=== PATIENT | male | born 1995 | race Caucasian/White ===

== ENCOUNTER 2018-03-14 20:52 | Emergency (ER) | payer OTHER ==
[2018-03-14] MEDS ORDERED: NS 0.9% 1000 ML* 1,000 ML IV ONE (21:46)
[2018-03-14 22:01] LABS: ABS Basophils 0.1 10^3/ul (0-0.2); ABS Eosinophils 0.1 10^3/ul (0-0.6); ABS Lymphocytes 2.9 10^3/ul (1.0-4.8); ABS Monocytes 0.5 10^3/ul (0-0.8); ABS Neutrophils 4.5 10^3/ul (1.5-7.7); ABS Nucleated RBC 0 10^3/ul; Eosinophil % 1.6 % (0-6); Hematocrit 45 % (42-52); Hemoglobin 15.6 g/dl (14.0-18.0); Lymphocyte % 35.9 % (25-47); Mean Corpuscular HGB Conc 35 g/dl (31-36); Mean Corpuscular Hemoglobin 31 pg (27-31); Mean Corpuscular Volume 90 fL (80-94); Mean Platelet Volume 7.9 um3 (7.4-10.4); Nucleated Red Blood Cells % 0.1; Platelet Count 263 10^3/ul (150-450); Red Blood Count 4.96 10^6/ul (4.0-5.4); Red Cell Distribution Width 13 % (10.5-15); White Blood Count 8.1 10^3/ul (3.5-10.8)
[2018-03-14 22:05] LABS: INR 1.06 (0.77-1.02)
[2018-03-14 22:18] LABS: EGFR Non-African American 115.4 (>60)
[2018-03-14] MEDS ORDERED: Iodixanol* (CONTRAST) 320 MG/ML 100 ML SDV IV ONE (22:41)
--- NOTE | 2018-03-14 23:16 | ED ---
Thomas Ngo Julia, scribed for Fernanda Fowler MD on 03/14/18 at 2124 . Abdominal Pain/Male - HPI Summary HPI Summary: This patient is a 22 year old M presenting to [facility] accompanied by his mother with a chief complaint of intermittent RLQ abdominal pain multiple times in the past two days (more than 10 times) that lasts roughly 2 hours maximum. Patient reports rectal pain with BM, one bout of vomiting (not bloody or dark), decreased PO intake, fever of 101 at home tonight (did not take fever reducing med) and bloody runny stool with bright red blood. Patient denies hematuria and testicular pain. The patient rates the pain 5/10 in severity. Medications include Metformin 500mg daily starting 03/12/18, as prescribed by Dr. Rollins in [place]. A1C of 9.8 and (nonfasting) blood glucose of 350 on 03/08/18. Pt last ate at 14:00 today. Pt takes Ibuprofen as needed. Took 800mg Ibuprofen on for knee pain, but does not take more than one 800mg Ibuprofen in a week. - History of Current Complaint Chief Complaint: EDAbdPain Stated Complaint: ABD PAIN, BLOOD IN STOOL Time Seen by Provider: 03/14/18 20:57 Hx Obtained From: Patient, Family/Child Therapist - mother Onset/Duration: Gradual Onset, Lasting Days, Still Present Timing: Intermittent, Lasting Hours Severity Initially: Mild Severity Currently: Moderate Pain Intensity: 5 Pain Scale Used: 0-10 Numeric Location: Discrete At: RLQ Radiates: No Character: Sharp Aggravating Factor(s): Food Alleviating Factor(s): Nothing Associated Signs And Symptoms: Positive: Fever - 101 at home tonight, not in ED , Blood in Stool, Decreased Appetite, Vomiting, Diarrhea - Risk Factors Testicular Torsion: Negative Cardiac Risk Factors: Diabetes - Allergies/Home Medications Allergies/Adverse Reactions: Allergies Allergy/AdvReac Type Severity Reaction Status Date / Time No Known Allergies Allergy Verified 03/14/18 20:57 Home Medications: Home Medications Metformin ER (NF) 500 mg PO DAILY 03/14/18 [History Confirmed 03/14/18] PMH/Surg Hx/FS Hx/Imm Hx Previously Healthy: No Endocrine/Hematology History: Reports: Hx Diabetes - type II, new dx, started metformin 03/12/18 Denies: Hx Thyroid Disease Cardiovascular History: Denies: Hx Hypertension Respiratory History: Denies: Hx Asthma, Hx Lung Cancer GI History: Denies: Hx Ulcer Psychiatric History: Denies: Hx Anxiety - Surgical History Surgery Procedure, Year, and Place: none Infectious Disease History: No Infectious Disease History: Denies: Traveled Outside the [place] in Last 30 Days - Family History Known Family History: Positive: Diabetes - mother - Social History Occupation: Unemployed Lives: With Family Alcohol Use: Rare Substance Use Type: Reports: None Smoking Status (MU): Never Smoked Tobacco Review of Systems Positive: Fever Cardiovascular: Negative Respiratory: Negative Positive: Abdominal Pain, Vomiting, Diarrhea, Other - bloody stool (bright red) Positive: no symptoms reported Skin: Negative Neurological: Negative Psychological: Normal All Other Systems Reviewed And Are Negative: Yes Physical Exam - Summary Physical Exam Summary: Appearance: well appearing, moderate pain distress, obese Skin: Warm, color reflects adequate perfusion, striae on abdomen Head: Normal Head/Face inspection, Atraumatic Eyes: Conjunctiva clear ENT: Normal inspection Neck: Supple, no nodes, no JVD. Respiratory: Lungs clear, Normal breath sounds, no respiratory distress Cardio: RRR, No murmur, pulses normal, brisk capillary refill Abdomen: soft, RLQ tenderness, positive guarding no rebound, no masses, neg psoas and obturator signs. No CVAT. 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 Bright red blood on buttock cheeks, small non thrombosed hemorrhoid externally, soft brown stool in vault, sent for testing, no fissure or fistula : uncircumcised penis, testicle descended bilaterally, no masses, no inguinal or femoral hernias by palpation. Musculoskeletal: Strength Intact/ ROM intact. No calf tenderness. No edema. Psychological: Normal Neuro: Alert, muscle tone normal, no focal deficit Triage Information Reviewed: Yes Vital Signs On Initial Exam: Initial Vitals Temp Pulse Resp BP Pulse Ox 99.1 F 87 16 133/95 97 03/14/18 20:54 03/14/18 20:54 03/14/18 20:54 03/14/18 20:54 03/14/18 20:54 Vital Signs Reviewed: Yes Diagnostics - Vital Signs Vital Signs Temp Pulse Resp BP Pulse Ox 03/14/18 20:54 99.1 F 87 16 133/95 97 - Laboratory Lab Results: Lab Results 03/14/18 03/14/18 03/14/18 Range/Units 21:50 21:51 21:51 WBC 8.1 (3.5-10.8) 10^3/ul RBC 4.96 (4.0-5.4) 10^6/ul Hgb 15.6 (14.0-18.0) g/dl Hct 45 (42-52) % MCV 90 (80-94) fL MCH 31 (27-31) pg MCHC 35 (31-36) g/dl RDW 13 (10.5-15) % Plt Count 263 (150-450) 10^3/ul MPV 7.9 (7.4-10.4) um3 Neut % (Auto) 55.6 (38-83) % Lymph % (Auto) 35.9 (25-47) % [place] % (Auto) 6.3 (0-7) % Eos % (Auto) 1.6 (0-6) % Baso % (Auto) 0.6 (0-2) % Absolute Neuts (auto) 4.5 (1.5-7.7) 10^3/ul Absolute Lymphs (auto) 2.9 (1.0-4.8) 10^3/ul Absolute Monos (auto) 0.5 (0-0.8) 10^3/ul Absolute Eos (auto) 0.1 (0-0.6) 10^3/ul Absolute Basos (auto) 0.1 (0-0.2) 10^3/ul Absolute Nucleated RBC 0 10^3/ul Nucleated RBC % 0.1 INR (Anticoag Therapy) (0.77-1.02) Sodium 137 L (139-145) mmol/L Potassium 3.7 (3.5-5.0) mmol/L Chloride 103 (101-111) mmol/L Carbon Dioxide 22 (22-32) mmol/L Anion Gap 12 H (2-11) mmol/L BUN 10 (6-24) mg/dL Creatinine 0.82 (0.67-1.17) mg/dL Est GFR ( Amer) 148.4 (>60) Est GFR (Non-Af Amer) 115.4 (>60) BUN/Creatinine Ratio 12.2 (8-20) Glucose 157 H (70-100) mg/dL Lactic Acid 0.8 (0.5-2.0) mmol/L Calcium 10.3 (8.6-10.3) mg/dL Magnesium 1.9 (1.9-2.7) mg/dL Total Bilirubin 0.60 (0.2-1.0) mg/dL AST 91 H (13-39) U/L ALT 120 H (7-52) U/L Alkaline Phosphatase 86 (34-104) U/L Total Creatine Kinase 85 (10-223) U/L C-Reactive Protein 6.24 H (< 5.00) mg/L Total Protein 7.8 (6.4-8.9) g/dL Albumin 4.7 (3.2-5.2) g/dL Globulin 3.1 (2-4) g/dL Albumin/Globulin Ratio 1.5 (1-3) Amylase 25 L (29-103) U/L Lipase 39 (11.0-82.0) U/L / Range/Units 21:51 WBC (3.5-10.8) 10^3/ul RBC (4.0-5.4) 10^6/ul Hgb (14.0-18.0) g/dl Hct (42-52) % MCV (80-94) fL MCH (27-31) pg MCHC (31-36) g/dl RDW (10.5-15) % Plt Count (150-450) 10^3/ul MPV (7.4-10.4) um3 Neut % (Auto) (38-83) % Lymph % (Auto) (25-47) % [place] % (Auto) (0-7) % Eos % (Auto) (0-6) % Baso % (Auto) (0-2) % Absolute Neuts (auto) (1.5-7.7) 10^3/ul Absolute Lymphs (auto) (1.0-4.8) 10^3/ul Absolute Monos (auto) (0-0.8) 10^3/ul Absolute Eos (auto) (0-0.6) 10^3/ul Absolute Basos (auto) (0-0.2) 10^3/ul Absolute Nucleated RBC 10^3/ul Nucleated RBC % INR (Anticoag Therapy) 1.06 H (0.77-1.02) Sodium (139-145) mmol/L Potassium (3.5-5.0) mmol/L Chloride (101-111) mmol/L Carbon Dioxide (22-32) mmol/L Anion Gap (2-11) mmol/L BUN (6-24) mg/dL Creatinine (0.67-1.17) mg/dL Est GFR ( Amer) (>60) Est GFR (Non-Af Amer) (>60) BUN/Creatinine Ratio (8-20) Glucose (70-100) mg/dL Lactic Acid (0.5-2.0) mmol/L Calcium (8.6-10.3) mg/dL Magnesium (1.9-2.7) mg/dL Total Bilirubin (0.2-1.0) mg/dL AST (13-39) U/L ALT (7-52) U/L Alkaline Phosphatase (34-104) U/L Total Creatine Kinase (10-223) U/L C-Reactive Protein (< 5.00) mg/L Total Protein (6.4-8.9) g/dL Albumin (3.2-5.2) g/dL Globulin (2-4) g/dL Albumin/Globulin Ratio (1-3) Amylase (29-103) U/L Lipase (11.0-82.0) U/L Result Diagrams: 03/14/18 21:50 03/14/18 21:51 Lab Statement: Any lab studies that have been ordered have been reviewed, and results considered in the medical decision making process. Abdominal Pain Fem Course/Dx - Course Course Of Treatment: 22 year old M presenting to [facility] accompanied by his mother with a chief complaint of intermittent RLQ abd pain,rectal pain with BM, one bout of vomiting, decreased PO intake, fever of 101 tonight, and bloody runny stool with bright red blood. Medications include Metformin 500mg daily, just started 03/12/18, after new dx of DMII by Dr. Rollins with HbA1C of 9.8 and blood glucose of 350 on 03/08/18. Rectal exam reveals Bright red blood on buttock cheeks, small non thrombosed hemorrhoid externally. 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 Labs, CT A/P, and stool testing is ordered. Pt declines pain medication at this time. Patient is signed out to Dr. Ramírez at shift change awaiting labs and CT. - Diagnoses Differential Diagnosis/HQI/PQRI: Appendicitis, Gall Bladder Disease, Other - hemorrhoids, side effects of metformin, gastroenteritis Provider Diagnoses: Abdominal pain, Bright red blood per rectum Discharge - Sign-Out/Discharge Documenting (check all that apply): Sign-Out Patient Signing out patient TO: Bruce Ramírez - pending labs and CT - Discharge Plan Referrals: Carla Rollins MD [Primary Care Provider] - Additional Instructions: Hold your metformin for [address] scan. The documentation as recorded by the Thomsa donato Julia accurately reflects the service I personally performed and the decisions made by , Fernanda Fowler MD.
[2018-03-14 23:25] LABS: Urine Appearance Clear; Urine Blood Negative (Negative); Urine Color Yellow; Urine Ketones 1+ (Negative); Urine Protein Negative (Negative); Urine Specific Gravity 1.013 (1.010-1.030); Urine Urobilinogen Negative (Negative)
--- NOTE | 2018-03-15 00:31 | ED ---
Kong Ngo Gabriel, scribed for Bruce Ramírez MD on 03/15/18 at 0030 . Course/Dx - Diagnoses Provider Diagnoses: Abdominal pain, Bright red blood per rectum Discharge - Sign-Out/Discharge Documenting (check all that apply): Discharge/Admit/Transfer - Discharge Plan Condition: Good Disposition: HOME Referrals: Carla Rollins MD [Primary Care Provider] - Additional Instructions: Hold your metformin for [address] scan. - Billing Disposition and Condition Condition: GOOD Disposition: HOME The documentation as recorded by the Kong donato Gabriel accurately reflects the service I personally performed and the decisions made by Darrell farmer Richard, MD.
[2018-03-15 00:49] VITALS: BP 134/87
--- NOTE | 2018-03-15 07:53 | RAD ---
CLINICAL HISTORY: Right lower quadrant pain and bloody diarrhea COMPARISON: None TECHNIQUE: Contrast enhanced CT examination of the abdomen and pelvis from the lung bases through the initial tuberosities. The patient received 100 mL Visipaque 320 intravenously prior to imaging.The patient received oral contrast as well prior to imaging. FINDINGS: VISUALIZED LUNG BASES: The visualized lung bases are grossly clear. There is no pleural effusion. ABDOMEN AND PELVIS: The liver is homogenously hypodense relative to the spleen. The liver is mildly enlarged measuring up to 21.9 cm in greatest cephalocaudal dimension. The spleen, pancreas and adrenal glands are grossly normal in appearance. The gallbladder is normal. The kidneys are normal in appearance without focal mass, calcification or signs of hydronephrosis. There are contrast has progressed as far as the rectum. The small and large bowel are not distended. The patient's normal appendix is identified in the right lower quadrant measuring 6 mm in diameter (coronal image 34). Depicted better on the coronal plane images there is the appearance of distention of the mesenteric root (for example coronal image 45). There is questionable mild thickening of the wall of the proximal sigmoid colon measuring 5 mm in thickness (image 68). There is no gross retroperitoneal or mesenteric lymphadenopathy. The pelvic viscera is normal in appearance. The abdominal aorta and iliac arteries are normal in course and diameter. 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 IMPRESSION: 1. Distention of the mesenteric root with questionable mild wall thickening of the distal colon which could be seen in the setting of inflammatory bowel disease or infectious colitis. 2. Hepatic steatosis.
== END 2018-03-15 00:49 | disposition home or self-care (01) ==
LOC: ED 20:52
DX: R10.31 Right lower quadrant pain (principal); K62.5 Hemorrhage of anus and rectum; R50.9 Fever, unspecified; K76.0 Fatty (change of) liver, not elsewhere classified; E11.9 Type 2 diabetes mellitus without complications; Z79.84 Long term (current) use of oral hypoglycemic drugs
CPT/HCPCS: 36415; 74177; 80053; 81003; 82150; 82272; 82550; 83605; 83690; 83735; 85025; 85610; 86140; 86703; 96360; 96361; 99283; Q9967